=== PATIENT | female | born 1985 | race Caucasian/White ===

== ENCOUNTER 2022-07-17 19:15 | Emergency (ER) | payer BC, SELFPAY ==
[2022-07-17 19:31] VITALS: BP 140/94; PULSE 76; RESP 18; TEMP 36.6; O2SAT 97; BMI 41.9
--- NOTE | 2022-07-17 19:38 | ED_ITS ---
HPI - Wound/Laceration General: Chief Complaint: Wound/Laceration Stated Complaint: left hand lac Time Seen by Provider: 07/17/22 19:37 History of Present Illness: 37-year-old female comes in today with injury to the left hand. Patient reports that [place] and tripped and fell cutting herself on something in the river. Patient has a superficial laceration to the palmar hand proximal to the fifth digit. Patient cannot recall her tetanus vaccine. Review of Systems General: Reports: 10 or more systems reviewed and unremarkable except in HPI and below Musc: Reports: extremity pain Skin/Breast: Reports: new lesions Physical Exam Const: COMMON NORMALS: alert HENMT: COMMON NORMALS: normocephalic and atraumatic HEAD & SCALP: normoceph alic and atraumatic Neck/C-Spine: COMMON NORMALS: full ROM Resp: COMMON NORMALS: normal respiratory effort Cardio: COMMON NORMALS: regular rate RATE: regular rate Extremity: LEFT UPPER EXTREMITY: Yes hand & digits (2 cm laceration superficial palmar hand) Left hand and digits: Yes inspection, Yes palpation and Yes ROM EXTREMITY IMAGE (BACK): 1. Linear superficial laceration 2 cm Neuro: SENSORIUM/ORIENTATION: Yes alert Skin: TRAUMA: laceration (Left palmar hand) linear Course Vital Signs: Vital signs: Vital Signs Temperature 97.8 F 07/17/22 19:31 Pulse Rate 76 07/17/22 19:39 Respiratory Rate 18 07/17/22 19:39 Blood Pressure 140/94 07/17/22 19:39 Pulse Oximetry 97 07/17/22 19:39 Oxygen Delivery Me thod Room Air 07/17/22 19:39 MDM - Wound/Laceration Medical Decision Making 37-year-old female comes in today for injury to the left palmar hand. On exam patient has a superficial laceration just into the lower dermis with minimal fat exposure. Wound is nongaping and bleeding is controlled. Patient has normal range of motion of the hand. No foreign body is noted. Differential diagnosis includes foreign body, fracture, laceration, need for prophylaxis tetanus. No sign of fracture or foreign body is noted in the hand. Wound was cleaned and dressed. Patient's tetanus was updated. Patient was started on Augmentin due to the nature of injury. Discharge Plan Discharge Patient Disposition: Home Clinical Impression: Laceration of hand Qualifiers: Encounter type: initial encounter Foreign body presence: without foreign body Laterality: left Qualified Code(s): S61.412A - Laceration without foreign body of left hand, initial encounter Condition: Stable Prescriptions: New amoxicillin-pot clavulanate 875-125 mg tablet 1 tab PO BID Qty: 14 0RF Discharge Orders: Discharge ED (Routine); Ordered 07/17/22 Ordered By: Kyree Agarwal Discharge Diet: Usual diet Discharge Activity: Increase activity as tolerated Patient Instructions: Laceration (ED) Activity Restrictions/Additional Instructions: Keep wound clean and dry is much as possible. Clean wound twice daily with soap and water and apply antibiotic ointment. Take oral antibiotics 1 tablet twice a day for next 7 days. Monitor site for increasing infection such as increasing swelling redness and fever. Follow-up with primary care as needed. Return to ED for new concerns. Coding Level of Care Code ED Fishing Tool Supervisor for Saranya Bacon
[2022-07-17 19:39] VITALS: BP 140/94; PULSE 76; RESP 18; O2SAT 97
[2022-07-17] MEDS: bacitracin ointment Pkt 1 EACH TOPICAL (19:56)
[2022-07-17] MEDS: tetanus-dipt-pertussis 0.5 mL SDV IM (19:56)
[2022-07-17] MEDS: amoxicillin-clav 875-125 mg Tablet 1 TAB PO (19:56)
--- NOTE | 2022-07-23 15:01 | DCPLANNER ---
content creation manager was triggered to call patient due to no primary care physician - patient does not live in the area.
== END 2022-07-17 20:06 | disposition home or self-care (01) ==
PROVIDERS: Emergency Provider Nurse Practitioner Family
DX: S61.412A Laceration without foreign body of left hand, initial encounter (principal); W01.0XXA Fall on same level from slipping, tripping and stumbling without subsequent striking against object, initial encounter; Y92.828 Other wilderness area as the place of occurrence of the external cause; Z23 Encounter for immunization
CPT/HCPCS: 90715; 99283